=== PATIENT | female | born 1960 | race Caucasian/White ===

== ENCOUNTER 2016-12-25 13:54 | Emergency (ER) | END 2016-12-25 15:21 | disposition home or self-care (01) | DX: R35.0 Frequency of micturition (principal); I10 Essential (primary) hypertension; J45.909 Unspecified asthma, uncomplicated | CPT/HCPCS: 81003; 87086; 99284; Z7610 ==

== ENCOUNTER 2017-01-01 18:18 | Emergency (ER) | payer BC ==
[~2017-01-01] VITALS: Ht 162.6 cm; Wt 104.0 kg
[~2017-01-01 18:18] MED LIST: ALB.5NB20 IH; CIPR500T4 PO; CYCL-319 PO; HYD25 PO; NAPR-260 PO; RANI150T5 PO; TRAM50TA2 PO
[2017-01-01 18:23] VITALS: Ht 162.6 cm; Wt 104.0 kg
[2017-01-01] MEDS ORDERED: KETOROLAC 30 MG INJ IM STA (19:58)
[2017-01-01] MEDS ORDERED: DEXAMETHASONE 10 MG/ML 1 ML INJ IM ONE (20:00)
[2017-01-01] MEDS ORDERED: CIPR500T4 PO (20:12)
[2017-01-01] MEDS ORDERED: PHEN-537 PO (20:12)
[2017-01-01] MEDS ORDERED: IBUP-1542 PO (20:17)
[2017-01-01] MEDS ORDERED: CYCL-319 PO (20:17)
[2017-01-01 20:37] VITALS: BP 162/96; PULSE 84; RESP 20; TEMP 99
--- NOTE | 2017-01-01 20:38 | ERD ---
ER Documentation Chief Complaint Date/Time DATE: 01/01/17 TIME: 20:35 Chief Complaint left shoulder pain, denies injury HPI This patient is a 56-year-old female with past medical history of left shoulder pain presenting to the emergency department for acute on chronic left shoulder pain intermittently for the past 2 months. The patient did have a negative x- ray 2 months ago. Pain is constant and she rates it an 8 out of 10. Naproxen and Advil relieves the pain temporarily. Symptoms worsened with range of motion , alleviated with rest and neck stretches. There is radiation to the left trapezius muscles. She denies injury, tingling in the left upper extremity, or other symptoms currently. ROS All systems reviewed and are negative except as per history of present illness. Medications Home Meds Active Scripts Ibuprofen* (Motrin*) 600 Mg Tab, 600 MG PO Q6, #30 TAB Prov:VIANEY MARCANO PA-C 01/01/17 Cyclobenzaprine Hcl* (Cyclobenzaprine Hcl*) 10 Mg Tablet, 10 MG PO TID, #15 TAB Prov:VIANEY MARCANO PA-C 01/01/17 Ciprofloxacin Hcl* (Ciprofloxacin Hcl*) 500 Mg Tablet, 500 MG PO BID for 7 Days , TAB Prov:SHANNON OSCAR PA-C 12/25/16 Tramadol HCl (Tramadol HCl) 50 Mg Tablet, 50 MG PO Q4 Y for PAIN, #20 TAB Prov:SHANNON OSCAR PA-C 12/25/16 Cyclobenzaprine Hcl* (Cyclobenzaprine Hcl*) 10 Mg Tablet, 10 MG PO TID, #15 TAB Prov:SHANNON OSCAR PA-C 12/25/16 Naproxen* (Naprosyn*) 500 Mg Tablet, 500 MG PO BID Y for PAIN AND/OR INFLAMMATION, #30 TAB Prov:SHANNON OSCAR PA-C 12/25/16 Reported Medications Hydrochlorothiazide* (Hydrochlorothiazide*) 25 Mg Tab, 12.5 MG PO DAILY 03/23/13 Albuterol Sulfate* (Albuterol Sulfate* Neb) 20 Ml Nebu, 20 ML IH Q4 Y 03/23/13 Ranitidine Hcl* (Ranitidine Hcl*) 150 Mg Tablet, 150 MG PO BID 03/23/13 Discontinued Scripts Phenazopyridine Hcl* (Pyridium*) 100 Mg Tab, 100 MG PO TID Y for URINARY PAIN, # 8 TAB Prov:MARCANOVIANEY PA-C 01/01/17 Allergies Allergies: Coded Allergies: hydromorphone HCl (Verified Allergy, Unknown, 09/19/15) morphine (Verified Allergy, Unknown, 09/19/15) PMhx/Soc History of Surgery: Yes (CHOLECYSTECTOMY, APPENDECTOMY, 3 CESAREANS) Anesthesia Reaction: No Hx Neurological Disorder: Yes (OCCASIONAL RODRIGEZ'S) Hx Respiratory Disorders: Yes (ASTHMA. 6 MOS AGO LAST INHALER USE) Hx Cardiac Disorders: Yes (HTN) Hx Psychiatric Problems: No Hx Miscellaneous Medical Probl: No Hx Alcohol Use: No Hx Substance Use: No Hx Tobacco Use: No Smoking Status: Never smoker Physical Exam Vitals Vital Signs Date Time Temp Pulse Resp B/P Pulse Ox O2 Delivery O2 Flow Rate FiO2 01/01/17 18:23 97.8 96 20 161/88 98 Physical Exam Const: Nontoxic, well-appearing female in no acute distress. Head: Atraumatic Eyes: Normal Conjunctiva ENT: Normal External Ears, Nose and Mouth. Neck: Full range of motion..~ No meningismus. Resp: Clear to auscultation bilaterally Cardio: Regular rate and rhythm, no murmurs Abd: Soft, non tender, non distended. Normal bowel sounds Skin: No petechiae or rashes Back: No midline or flank tenderness Ext: There is some subjective tenderness palpation of the lateral and posterior aspects of the left shoulder. There is pain with approximate 30 abduction of the left shoulder. There is no crepitus noted. There is no warmth. There is no obvious deformity or dislocation noted. The patient does have some tenderness and tightness to the left trapezius muscle. 2+ radial pulses in the left upper extremity. All other extremities are normal in appearance. Neur: Awake and alert Psych: Normal Mood and Affect Results 24 hrs Current Medications Medications (Trade) Dose Ordered Sig/Viry Route PRN Reason Start Time Stop Time Status Last Admin Dose Admin Ketorolac Tromethamine (Toradol) 30 mg ONCE STAT IM 01/01/17 19:58 01/01/17 20:00 DC 01/01/17 20:14 Dexamethasone (Decadron) 10 mg ONCE ONCE IM 01/01/17 20:00 01/01/17 20:01 DC 01/01/17 20:11 Procedures/MDM 56-year-old female presenting to the emergency department with complaints of left shoulder and left trapezius pain. On exam of the left upper extremity: There is some subjective tenderness palpation of the lateral and posterior aspects of the left shoulder. There is pain with approximate 30 abduction of the left shoulder. There is no crepitus noted. There is no warmth. There is no obvious deformity or dislocation noted. The patient does have some tenderness and tightness to the left trapezius muscle. 2+ radial pulses in the left upper extremity. I did not feel that imaging was indicated at this time because the patient had a negative left shoulder x-ray approximately 2 months ago and she has had no new injuries. Differential diagnoses include arthritis, strain, and others. The patient was given IM Toradol and IM Decadron in the department and she was feeling improved prior to discharge. The patient is stable for outpatient management with a prescription for Flexeril and ibuprofen and she is to have close follow-up with her primary care physician and security delivery specialist. She is to return immediately for any new or worsening symptoms. Departure Diagnosis: Primary Impression: Left shoulder pain Chronicity: chronic Qualified Code: M25.512 - Chronic left shoulder pain Condition: Fair Patient Instructions: Neck Exercises: Active Neck Rotation, Shoulder Exercises : External Rotation, Shoulder Exercises: Biceps Curl Additional Instructions: Follow up with your PCP within the next 1-3 days for a repeat evaluation. If you require a referral to a specialist, your Primary Care Provider may be able to provide this for you. In most patient cases, a referral is not required. If you have further questions regarding this matter, please ask your Primary Care Provider. Return the the emergency department immediately if symptoms worsen or change. If you have any questions regarding medications, ask your pharmacist or us before you leave. If any adverse reactions, occur while taking your medications, discontinue the treatment and return to the emergency department immediately. If any new or worsening symptoms, uncontrolled fevers, or other unexplained symptoms occur, return to the emergency department immediately. Take your medications as directed, and complete the entire course of treatment. VIANEY MARCANO PA-C Jan 01, 2017 20:38
== END 2017-01-01 20:38 | disposition home or self-care (01) ==
LOC: FTE 18:18
DX: M25.512 Pain in left shoulder (principal); J45.909 Unspecified asthma, uncomplicated; I10 Essential (primary) hypertension
CPT/HCPCS: 96372; 99284; J1100; J1885